=== PATIENT | male | born 1945 | race Caucasian/White ===

== ENCOUNTER 2018-04-09 11:37 | Emergency (ER) | payer MEDICARE | END 2018-04-09 12:25 | disposition home or self-care (01) | LOC: ERS 11:37 | DX: H60.92 Unspecified otitis externa, left ear (principal); I10 Essential (primary) hypertension; J45.909 Unspecified asthma, uncomplicated; Z79.899 Other long term (current) drug therapy; Z79.51 Long term (current) use of inhaled steroids | CPT/HCPCS: 99282 ==

== ENCOUNTER 2018-10-28 09:40 | Emergency (ER) | payer MEDICARE ==
--- NOTE | 2018-10-28 10:18 | RAD ---
EXAM: XR Knee Lt 4 View STANDARD PROVIDED CLINICAL HISTORY: Pain FINDINGS: There is no evidence for fracture or other acute osseous abnormality. Alignment appears anatomic. Shea nt spaces appear preserved. IMPRESSION: No evidence for an acute osseous abnormality. If there is persistent clinical concern, conservative m anagement and follow-up imaging advised.
== END 2018-10-28 10:45 | disposition home or self-care (01) ==
LOC: ERS 09:40
DX: M17.12 Unilateral primary osteoarthritis, left knee (principal); I10 Essential (primary) hypertension; J45.909 Unspecified asthma, uncomplicated; Z79.51 Long term (current) use of inhaled steroids

== ENCOUNTER 2019-08-22 14:57 | Outpatient (CLI) | payer MEDICARE ==
--- NOTE | 2019-08-22 16:23 | MRI ---
MRI lumbar spine noncontrast: HISTORY: Intervertebral disc disorder with radiculopathy. Low back pain rated at the left hip to the knee. COMPARISON: 12/14/2012 FINDINGS: Appropriate T1 marrow signal intensity of the lumbar vertebra. Lumbar spine vertebral body height is maintained. No fracture. No significant STIR hyperintensity to suggest ligamentous injury or vertebral body edema Appropriate signal intensity of the visualized paraspinal muscles and solid organs. Conus medullaris terminates at the L1-L2 disc space T12-L1:Adequate disc hydration. No significant central canal stenosis or significant neural foraminal narrowing L1-L2:Adequate disc hydration. No significant central canal stenosis or significant neural foraminal narrowing L2-L3:Disc desiccation with mild loss of disc space height. Broad-based disc bulge associated annular fissure result in mild central canal stenosis. Signal changes along the posterior annulus are similar to the previous examination as is the overall degree of loss of disc space height and central canal stenosis. Mild bilateral neural foraminal narrowing L3-L4:Adequate disc hydration. Broad-based disc bulge, ligament flavum thickening and facet hypertrop hy result in mild central canal stenosis. Bilaterally the neural foramina are patent L4-L5:Disc desiccation with mild loss of disc space height. Broad-based disc bulge, ligamentum flavum thickening and facet hypertrophy result in moderate central canal stenosis, unchanged. Mild to moderate bilateral neural foraminal narrowing L5-S1:Disc desiccation with progression of loss of disc space height. Broad-based disc bulge abuts th e thecal sac. Encroachment upon bilateral subarticular zones without obscuration of either traversing S1 nerve root. There is bilateral facet hypertrophy. Moderate to severe right and left chris ral foraminal narrowing. IMPRESSION: Multilevel degenerative changes of the lumbar spine as described above.
== END 2019-08-22 14:58 | disposition home or self-care (01) ==
LOC: BICMRI 14:57
PROVIDERS: ATTEND Specialist
DX: M51.17 Intervertebral disc disorders with radiculopathy, lumbosacral region (principal); M47.26 Other spondylosis with radiculopathy, lumbar region
CPT/HCPCS: 72148

== ENCOUNTER 2019-12-25 07:03 | Outpatient (CLI) | payer MEDICARE, OTHER ==
[2019-12-26 12:56] LABS: SARS-CoV-2 MS2 Positive; SARS-CoV-2 N Gene Negative; SARS-CoV-2 S Gene Negative; SARS-CoV-2 by NAA Not Detected (NotDetected); SARS-CoV-2 orf1ab Negative
== END 2019-12-25 07:04 | disposition home or self-care (01) ==
LOC: LABBT 07:03
PROVIDERS: ATTEND Neurological Surgery
DX: M48.061 Spinal stenosis, lumbar region without neurogenic claudication (principal); Z20.828 Contact with and (suspected) exposure to other viral communicable diseases
CPT/HCPCS: 87635; U0003

== ENCOUNTER 2019-12-28 05:35 | Day surgery (SDC) | payer MEDICARE ==
[2019-12-27 11:51] VITALS: BMI 23.7
--- NOTE | 2019-12-27 13:54 | HP ---
HISTORY OF PRESENT ILLNESS: Mr. Hooker is a pleasant 74-year-old man returning to our office under the direction of Dr. Stanley after having failed lumbar injections. He is known to us for prior surgery 8 years ago. Unfortunately, he has had recurrence of pain in the left lower extremity consistent with L5 radiculopathy. 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 He has had injections, which unfortunately did not help. He prefer to treat this surgically if possible. PAST MEDICAL HISTORY: Significant for hypertension and asthma. PAST SURGICAL HISTORY: Lumbar decompression. MEDICATIONS: Losartan, . ALLERGIES: NO KNOWN DRUG ALLERGIES. PHYSICAL EXAMINATION: Deferred. ASSESSMENT: Lumbar radiculopathy. PLAN: Dr. Vasquez met with the patient, reviewed imaging, and advocated for left L4-L5 decompression. He explained to the patient the risks, benefits, and alternatives to the procedure. The patient expressed understanding and elected to move forward with surgery as discussed. I do believe that the patient is mentally competent and capable of making medical decisions for himself. We will move forward with surgery as planned. Job ID: [id number]
[2019-12-28] MEDS ORDERED: Fentanyl 100 MCG/2 ML VIAL ONE (06:27)
[2019-12-28] MEDS ORDERED: EPINEPHrine 1 MG/ML AMP ONE (06:33)
[2019-12-28] MEDS ORDERED: Bupivacaine PF 0.5% 30 ML VIAL ONE (06:33)
[2019-12-28] MEDS ORDERED: Thrombin 5000 UNITS/5 ML VIAL ONE (06:34)
[2019-12-28] MEDS ORDERED: Tamsulosin HCl 0.4 MG CAP ONE (08:26)
--- NOTE | 2019-12-28 08:43 | OP ---
DATE OF PROCEDURE: 12/28/2019 [employer] HELPER: Eron Acosta PA-C INDICATION: Pain. DIAGNOSIS: Lumbar radiculopathy. PROCEDURE PERFORMED: Lumbar L4-5 decompression, left. ANESTHESIA: General. DESCRIPTION OF PROCEDURE: The patient was brought into the operating room and placed under general anesthesia. He was flipped from the supine to prone position on operating room table. A linear incision was planned over the L4-5 segment. After prepping and draping and after an appropriate preoperative pause, the incision was created. The soft tissues were swept left of midline and a self-retaining retractor was placed. A C-arm image was obtained to confirm the appropriate level. A high-speed cutting drill bit as well as 2, 3, and 4 mm Kerrisons were used to perform a laminectomy along the inferior aspect of L4 and the superior aspect of L5. The laminectomy was extended laterally to encompass the medial aspect of the facet joint in order to decompress the lateral recesses. The wound was irrigated. Hemostasis was maintained throughout. The wound was then closed in anatomic layers, and a pressure dressing was applied. There were no known procedural complications. Job ID: [id number]
[2019-12-28] MEDS ORDERED: Acetaminophen/Codeine 30-300mg Tablet ONE (09:59)
[2019-12-28] MEDS ORDERED: PROPOFOL 200 MG/20 ML VIAL ONE (10:21)
[2019-12-28] MEDS ORDERED: Lidocaine 1% PF 5 ML VIAL ONE (10:21)
[2019-12-28] MEDS ORDERED: EPHEDRINE 25 MG/5 ML SYRINGE ONE (10:21)
[2019-12-28] MEDS ORDERED: Dexamethasone 20 MG/5 ML VIAL ONE (10:21)
[2019-12-28] MEDS ORDERED: Rocuronium Bromide 10 MG/ML (10ML VIAL) ONE (10:21)
[2019-12-28] MEDS ORDERED: Glycopyrrolate 0.2 MG/ML 5 ML SYRINGE ONE (10:21)
[2019-12-28] MEDS ORDERED: Ondansetron PF 4 MG/2 ML Vial ONE (10:21)
[2019-12-28] MEDS ORDERED: Ondansetron ODT 4 MG TAB ONE (10:40)
--- NOTE | 2019-12-30 20:54 | EKG ---
Test Reason : PREOP Blood Pressure : / mmHG Vent. Rate : 059 BPM Atrial Rate : 059 BPM P-R Int : 206 ms QRS Dur : 104 ms QT Int : 442 ms P-R-T Axes : 070 017 110 degrees QTc Int : 437 ms Sinus bradycardia with occasional Premature ventricular complexes Possible Left atrial enlargement Left ventricular hypertrophy with repolarization abnormality Cannot rule out Septal infarct , age undetermined Abnormal ECG No previous ECGs available Confirmed by Melchor MARCH ([id number]) on 12/30/2019 8:54:35 PM Referred By: [facility] Confirmed By:Melchor MARCH
== END 2019-12-28 10:40 | disposition home or self-care (01) ==
LOC: SDC 05:35
PROVIDERS: ATTEND Neurological Surgery
PROC: 00NY0ZZ Release Lumbar Spinal Cord, Open Approach (ICD-10-PCS; principal; 2019-12-28)
DX: M48.061 Spinal stenosis, lumbar region without neurogenic claudication (principal); M54.16 Radiculopathy, lumbar region; I10 Essential (primary) hypertension; J45.909 Unspecified asthma, uncomplicated; Z79.899 Other long term (current) drug therapy
CPT/HCPCS: 76000; 93005; 93010; J0171; J0690; J1100; J2405; J2704; J3010; Q0162; S0020

== ENCOUNTER 2020-08-27 09:54 | Observation (INO) | payer MEDICARE ==
[2020-08-26 12:43] VITALS: BMI 24.5
[~2020-08-27 09:54] MED LIST: Iopamidol 370 76% 100 ML VIAL ONE
[2020-08-27] MEDS ORDERED: Lidocaine 1% (PF) 30 ML VIAL ONE (11:15)
[2020-08-27] MEDS ORDERED: Fentanyl 100 MCG/2 ML VIAL ONE (12:02)
[2020-08-27] MEDS ORDERED: Midazolam HCl 2 mg/2 ml Vial ONE (12:02)
[2020-08-27] MEDS ORDERED: Verapamil 5 MG/2 ML VIAL ONE (12:11)
[2020-08-27] MEDS ORDERED: Heparin 10,000 UNITS/ 10 ML VIAL ONE (12:11)
[2020-08-27] MEDS ORDERED: Nitroglycerin 100MG/250ML BOT 250 ML ONE (12:11)
[2020-08-27] MEDS ORDERED: Nitroglycerin 0.4 MG TAB (25 Tab Bottle) SL PRN (13:45)
[2020-08-27] MEDS ORDERED: Acetaminophen/Codeine 30-300mg Tablet PO PRN ×2 (13:45)
[2020-08-27] MEDS ORDERED: Sodium Chloride 0.9% 1,000 ML IV SCH (13:45)
[2020-08-27 18:32] LABS: Troponin I 0.076 ng/mL (< 0.028)
[2020-08-27] MEDS: Mometasone 100 MCG/Formoterol 5 MCG 120 PUFF INHALER INH SCH (18:45)
[2020-08-27 23:57] LABS: Troponin I 0.246 ng/mL (< 0.028)
[2020-08-28 05:46] LABS: #Eosinphils 0.1 thou/uL (0.0-0.7); #Lymphocytes 1.2 thou/uL (1.20-3.40); #Monocytes 0.9 thou/uL (0.11-0.59); #Neutrophils 5.8 thou/uL (1.40-6.50); %Basophils 0.3 % (0.0-1.0); %Eosinophils 1.8 % (0.0-10.0); %Monocytes 11.2 % (0.0-10.0); %Neutrophils 71.7 % (42.0-75.0); Mean Corpuscular HGB CONC 32.5 g/dL (32.0-36.0); Mean Corpuscular Hemoglobin 32.3 pg (27.0-31.0); Mean Corpuscular Volume 99.4 fL (78.0-98.0); Mean Platelet Volume 7.7 fL (7.4-10.4); Platelet Count 230 thou/uL (130-400); RBC Distribution Width 12.3 % (11.5-14.5); Red Blood Cell (RBC) Count 4.35 mill/uL (4.70-6.10); White Blood Cell (WBC) Count 8.1 thou/uL (4.8-10.8)
[2020-08-28 05:49] LABS: Anion Gap 13 mmol/L (10-20); BUN (Urea Nitrogen) 9 mg/dL (8.4-25.7); Calc. Creatinine Clearance 100 mL/min (70-130); Calcium 8.8 mg/dL (7.8-10.44); Carbon Dioxide 23 mmol/L (23-31); Chloride 106 mmol/L (98-107); Glucose 88 mg/dL (83-110); Potassium 4.2 mmol/L (3.5-5.1); Sodium 138 mmol/L (136-145)
[2020-08-28] MEDS: Mometasone 100 MCG/Formoterol 5 MCG 120 PUFF INHALER INH SCH (07:10)
[2020-08-28] MEDS ORDERED: Losartan 25 MG TAB PO SCH (09:00)
[2020-08-28] MEDS ORDERED: Lactinex Tablet PO SCH (09:00)
[2020-08-28] MEDS ORDERED: Metoprolol Tartrate 25 MG TAB PO SCH (09:00)
[2020-08-28] MEDS ORDERED: Multivit, Therapeutic 1 TAB PO SCH (09:00)
[2020-08-28 12:40] VITALS: BP 140/88; TEMP 98.6
[2020-08-28] MEDS ORDERED: Atorvastatin Calcium 20 MG TAB PO SCH (21:00)
[2020-08-29] MEDS ORDERED: Aspirin 81 mg Enteric Coated Tablet PO SCH (09:00)
== END 2020-08-28 14:55 | disposition home or self-care (01) ==
LOC: CCL 09:54 → 2SW 13:06
PROVIDERS: ADMIT Internal Medicine Cardiovascular Disease; ATTEND Internal Medicine Cardiovascular Disease
PROC: 4A023N7 Measurement of Cardiac Sampling and Pressure, Left Heart, Percutaneous Approach (ICD-10-PCS; principal; 2020-08-27)
PROC: B2111ZZ Fluoroscopy of Multiple Coronary Arteries using Low Osmolar Contrast (ICD-10-PCS; 2020-08-27)
DX: I25.10 Atherosclerotic heart disease of native coronary artery without angina pectoris (principal); I25.82 Chronic total occlusion of coronary artery; I47.2 Ventricular tachycardia; I42.8 Other cardiomyopathies; I11.0 Hypertensive heart disease with heart failure; I50.22 Chronic systolic (congestive) heart failure; J45.909 Unspecified asthma, uncomplicated; K21.9 Gastro-esophageal reflux disease without esophagitis; I49.3 Ventricular premature depolarization; R00.8 Other abnormalities of heart beat; Z79.899 Other long term (current) drug therapy; Z88.8 Allergy status to other drugs, medicaments and biological substances
CPT/HCPCS: 80048; 83735; 84484 ×3; 85025; 85347; 93005; 93458; 94640 ×2; C1769; G0378 ×2; 36415; 93010; 99152; 99153; J1644; J2001; J2250; J3010; Q9967

== ENCOUNTER 2022-09-04 08:55 | Emergency (ER) | payer MEDICARE, OTHER | END 2022-09-04 10:23 | disposition short-term general hospital (02) | LOC: ERS 08:55 | DX: S62.002A Unspecified fracture of navicular [scaphoid] bone of left wrist, initial encounter for closed fracture (principal); I10 Essential (primary) hypertension; W19.XXXA Unspecified fall, initial encounter | CPT/HCPCS: 99283 ==

== ENCOUNTER 2024-04-04 09:19 | Outpatient (CLI) | payer MEDICARE | END 2024-04-04 09:20 | disposition home or self-care (01) | LOC: BICRAD 09:19 | PROVIDERS: ATTEND Nurse Practitioner Family | DX: J18.9 Pneumonia, unspecified organism (principal) | CPT/HCPCS: 71046 ==